=== PATIENT | female | born 1985 | race Caucasian/White ===

== ENCOUNTER 2018-01-10 05:46 | Outpatient (CLI) | payer OTHER ==
[~2018-01-10] VITALS: Ht 167.6 cm; Wt 95.3 kg
[2018-01-10] MEDS ORDERED: PHEN-483 PO (12:27)
== END 2018-01-10 12:42 | disposition home or self-care (01) ==
LOC: PREOP 05:46
PROVIDERS: ATTEND Otolaryngology Otolaryngology/Facial Plastic Surgery
DX: Z01.818 Encounter for other preprocedural examination (principal)

== ENCOUNTER 2018-01-18 07:05 | Day surgery (SDC) | payer OTHER ==
[~2018-01-18] VITALS: Ht 167.6 cm; Wt 95.3 kg
[~2018-01-18 07:05] MED LIST: PHEN-483 PO
[2018-01-18] MEDS ORDERED: LACTATED RINGERS 1,000 ML IV PRN (07:29)
[2018-01-18 07:37] VITALS: BP 135/86
[2018-01-18 07:56] LABS: BASOPHILS % (AUTO) 0 % (0-10); EOSINOPHILS # (AUTO) 0.4 10^3/uL (0.0-0.3); EOSINOPHILS % (AUTO) 5 % (0-10); HEMATOCRIT 42 % (35-52); HEMOGLOBIN 14.3 G/DL (11.5-16.0); LYMPHOCYTES # (AUTO) 2.5 X 10^3 (1.0-4.0); LYMPHOCYTES % (AUTO) 26 % (12-44); MEAN CORPUSCULAR HEMOGLOBIN 31 PG (25-34); MEAN CORPUSCULAR HGB CONC 34 G/DL (32-36); MEAN CORPUSCULAR VOLUME 91 FL (80-99); MEAN PLATELET VOLUME 10.7 FL (7.4-10.4); MONOCYTES # (AUTO) 0.6 X 10^3 (0.0-1.0); MONOCYTES % (AUTO) 6 % (0-12); NEUTROPHILS # (AUTO) 6.1 X 10^3 (1.8-7.8); NEUTROPHILS % (AUTO) 63 % (42-75); PLATELET COUNT 270 10^3/uL (130-400); RED BLOOD COUNT 4.63 10^6/uL (4.35-5.85); RED CELL DISTRIBUTION WIDTH 13.9 % (10.0-14.5); WHITE BLOOD COUNT 9.7 10^3/uL (4.3-11.0)
[2018-01-18] MEDS ORDERED: fentaNYL INJECTION 100 MCG/2 ML AMP ONE (08:20)
[2018-01-18] MEDS ORDERED: MIDAZOLAM 2 MG/2 ML (VERSED) VIAL ONE (08:20)
--- NOTE | 2018-01-18 08:45 | Progress Note-Pre Operative ---
Pre-Operative Progress Note H&P Reviewed The H&P was reviewed, patient examined and no changes noted. Date Seen by Provider: Jan 18, 2018 Time Seen by Provider: 08:00 Date H&P Reviewed: Jan 18, 2018 Time H&P Reviewed: 08:00 Pre-Operative Diagnosis: Tons Hyper, Rec Tons AOMR HANDLEY MD Jan 18, 2018 8:44 am
[2018-01-18] MEDS ORDERED: ROCURONIUM 10 MG/ML 5 ML SYRINGE IV ONE (09:22)
[2018-01-18] MEDS ORDERED: LIDOCAINE PF 2% 5 ML (XYLOCAINE) VIAL ONE (09:22)
[2018-01-18] MEDS ORDERED: proPOfol 200 MG/20 ML (DIPRIVAN) VIAL IV ONE (09:22)
[2018-01-18] MEDS ORDERED: GLYCOPYRROLATE 0.2 MG/ML (ROBINUL) 2 ML VIAL ONE (09:22)
[2018-01-18] MEDS ORDERED: NEOSTIGMINE 1 MG/ML 5 ML SYRINGE ONE (09:22)
[2018-01-18] MEDS ORDERED: DEXAMETHASONE 10 MG/ML (DECADRON) 1 ML VIAL ONE (09:23)
[2018-01-18] MEDS ORDERED: ONDANSETRON 4 MG/2 ML (SDV) Z0FRAN ONE (09:23)
[2018-01-18] MEDS ORDERED: NS IV 1000 ML 1,000 ML IV SCH (09:28)
--- NOTE | 2018-01-18 09:28 | Progress Note-Post Operative ---
Post-Operative Progess Note Surgeon (s)/Research Quality Assurance Analyst (s) Surgeon AMOR HANDLEY MD Research Quality Assurance Analyst n/a Pre-Operative Diagnosis Tons Hyper, Rec Tons Post-Operative Diagnosis same Post-Op Procedure Note Date of Procedure: Jan 18, 2018 Name of Procedure Performed: Tonsillectomy Description & Findings Description and Findings: n/a Anesthesia Type get Estimated Blood Loss minimal Packing none. Specimen(s) collected/removed tonsils AMOR HANDLEY MD Jan 18, 2018 9:28 am
[2018-01-18] MEDS ORDERED: APAP 325 MG/10.15 ML LIQ (TYLENOL) UDC PO PRN (09:30)
[2018-01-18] MEDS ORDERED: HYDROcodone/APAP 7.5MG-325 MG/15 ML (LORTAB) UDC PO PRN (09:30)
[2018-01-18] MEDS ORDERED: SEVOFLURANE (ULTANE) 15 ML INHAL SOLN ONE (09:36)
[2018-01-18] MEDS ORDERED: morphine INJ 10 MG/ML 1ML (SYR OR VIAL) ONE (09:38)
[2018-01-18] MEDS: morphine INJ 10 MG/ML 1ML (SYR OR VIAL) IVP PRN ×2 (09:40→09:50)
[2018-01-18] MEDS ORDERED: PROMETHAZINE INJ 25 MG/ML (PHENERGAN) AMP IVP PRN (09:45)
[2018-01-18] MEDS ORDERED: ONDANSETRON 4 MG/2 ML (SDV) Z0FRAN IVP PRN (09:45)
[2018-01-18] MEDS ORDERED: MEPERIDINE (DEMEROL) INJ 50 MG/ML IVP PRN (09:45)
[2018-01-18] MEDS ORDERED: HYDROmorphone 1 MG/ML (DILAUDID) 1 ML SYRINGE IV PRN (09:45)
--- NOTE | 2018-01-18 10:02 | Anesthesia-General Post-Op ---
General Patient Condition Mental Status/LOC: Same as Preop Cardiovascular: Satisfactory Nausea/Vomiting: Absent Respiratory: Satisfactory Pain: Controlled Complications: Absent Post Op Complications Complications None Follow Up Care/Instructions Patient Instructions None needed. Anesthesia/Patient Condition Patient Condition Patient is doing well, no complaints, stable vital signs, no apparent adverse anesthesia problems. No complications reported per nursing. D/C home per [facility] Criteria: No AIDEE ESCOBAR CRNA Jan 18, 2018 10:02
[2018-01-18 10:20] VITALS: BP 131/69
[2018-01-18 10:50] VITALS: BP 128/89
[2018-01-18] MEDS ORDERED: HYDR15SO8 PO (11:18)
[2018-01-18] MEDS ORDERED: AMOX250S5 PO (11:18)
[2018-01-18] MEDS ORDERED: DEXAINTSOL PO (11:18)
[2018-01-18] MEDS ORDERED: TETRACAINESUCKERS MT (11:18)
[2018-01-18 11:20] VITALS: BP 125/82
[2018-01-18 12:20] VITALS: BP 125/82
== END 2018-01-18 12:20 | disposition home or self-care (01) ==
LOC: SDC 07:05
PROVIDERS: ATTEND Otolaryngology Otolaryngology/Facial Plastic Surgery
DX: J35.01 Chronic tonsillitis (principal); Z72.0 Tobacco use
CPT/HCPCS: 36415; 84703; 85025; 87081